=== PATIENT | female | born 1965 | race Caucasian/White ===

== ENCOUNTER 2019-10-19 06:52 | Day surgery (SDC) | payer BC, SELFPAY ==
[2019-10-19] VITALS (8 sets, daily range): BP systolic 98–134; BP diastolic 60–90; PULSE 59–78; RESP 12–18; TEMP 36–36.7; O2SAT 97–100; BMI 25.9
[2019-10-19] MEDS: SODIUM CHLORIDE 0.9% 1,000 ML 200 ML IV (07:40)
--- NOTE | 2019-10-19 08:10 | P.HP_ITS ---
History of Present Illness History of Present Illness Date Patient Seen: 10/19/19 Time Patient Seen: 08:11 Chief complaint: [id number] SCREENING COLONOSCOPY Narrative: Patient presents for colorectal screening. Previous colonoscopy 5 years ago demonstrated adenomatous polyp which was removed. No personal or family history of colon cancer. On further history denies any recent gastrointestinal symptoms. No nausea, vomiting, abdominal pain, loss of appetite, unexplained weight loss, change in bowel habits, diarrhea, constipation, melena, hematochezia, or bright red blood per rectum. Patient History Family & Social History Social History: household members spouse Tobacco & Substance use: Smoking Status Never smoker alcohol intake current alcohol intake frequency holiday/special occasion Substance Use Type does not use Meds Home Medications and Allergies Home Medications Medication Instructions Recorded Confirmed Type Multi For Her 1 tab-cap PO DAILY 10/19/19 10/19/19 History Allergies Allergy/AdvReac Type Severity Reaction Status Date / Time codeine Allergy Severe Vomiting Verified 10/19/19 07:32 Review of Systems Review of Systems Narrative: A 10 point review of systems is negative except as noted in the HPI Exam Vital Signs (past 8 hours): - 10/19/19 07:33 Temperature 98.1 F Pulse Rate 78 Respiratory Rate 18 Blood Pressure 134/90 Pulse Oximetry 99 Oxygen Delivery Method Room Air Narrative Exam Narrative: General-no acute distress, well nourished HEENT-moist mucous membranes, no scleral icterus Neck-supple, no lymphadenopathy Chest- non labored respirations, clear to auscultation bilaterally Cardiac-regular rate no peripheral edema Abdomen-soft, nontender, non distended Extremities-warm, well perfused Neurological-alert and oriented, no focal deficits Assessment & Plan Assessment and plan (1) Screening for colon cancer: Current visit: Yes Status: Acute Assessment & Plan narrative: The patient requires colorectal screening and colonoscopy is recommended. Technical details were discussed. Risks, benefits, alternatives explained. Risks including but not limited to myocardial infarction, aspiration, bleeding, pain, missed lesion, incomplete examination, need for further radiographic studies, colonic perforation, and need for major abdominal surgery were discussed. All questions were answered to their satis faction, and they are in agreement with this plan.
[2019-10-19] MEDS: MIDAZOLAM 5 MG/5 ML VIAL IV (08:13)
[2019-10-19] MEDS: fentaNYL 250 MCG/5 ML INJ IV (08:13)
--- NOTE | 2019-10-19 08:35 | PM.OP.ENDO ---
Operative Date/Time/Diagnoses Date of procedure: 10/19/19 Time of procedure: 08:35 Pre-op diagnosis: Screening colonoscopy History of adenomatous polyp Post-op diagnosis: same Procedure & Clinicians Study performed: Colonoscopy Same procedure as scheduled: Yes Indications: 54-year-old female the last colonoscopy 5 years ago demonstrates adenomatous polyp Surgeon: Terence Ibrahim Procedure Notes SCOAP/Timeout: Performed Procedure in detail: Patient placed in left lateral decubitus position. Time out was performed. Procedural sedation was administered with Versed and Fentanyl. A rectal exam demonstrated no external hemorrhoids no internal masses. Colonoscopy scope was placed into the rectum and advanced through the colon to the cecum. The ileocecal valve was identified. The scope was then slowly withdrawn examining colon thoroughly in all directions. The colonoscopy was notable for the following 1. No masses polyps 2. Sigmoid diverticulosis 3. Quality of prep excellent Scope withdrawal time: 6 Sedation minutes: 16 Findings: diverticulosis Specimen(s): none sent Complications: none Impression: Diverticulosis Post-procedure Recommendations: Colonscopy in 10 years Disposition: same day surgery
== END 2019-10-19 09:40 | disposition home or self-care (01) ==
PROVIDERS: PCP Family Medicine Geriatric Medicine; Referring Provider Surgery; Visit Provider Surgery
PROC: 0DJD8ZZ Inspection of Lower Intestinal Tract, Via Natural or Artificial Opening Endoscopic (ICD-10-PCS; CPT 45378; principal; 2019-10-19 08:30)
DX: Z12.11 Encounter for screening for malignant neoplasm of colon (principal); Z86.010 Personal history of colon polyps; K57.30 Diverticulosis of large intestine without perforation or abscess without bleeding
CPT/HCPCS: 45378; 99152; J2250; J3010

== ENCOUNTER → 2021-11-10 11:11 | Outpatient (CLI) | payer OTHER, SELFPAY ==
--- NOTE | 2021-11-10 | DI.MRI.S_ITS ---
PROCEDURE: MR KNEE LT WO CON INDICATIONS: Pain in left knee TECHNIQUE: Noncontrast sagittal PD fast spin echo and T2 fast spin echo with fat saturation, sagittal 3-D FLASH with fat saturation; coronal T1 spin echo and PD fast spin echo with fat saturation, and axial PD fast spin echo with fat saturation through the knee. COMPARISON: None. FINDINGS: Image quality: Excellent. Menisci: The medial and lateral menisci demonstrate normal morphology and internal signal. The meniscal root ligaments appear intact. Cruciate ligaments: The anterior and posterior cruciate ligaments appear intact. Medial structures: The medial collateral ligament appears intact. Visualized portions of the pes anserinus tendons appear normal. No abnormal bursal fluid. Lateral structures: The lateral collateral ligament, long and short heads of the biceps femoris tendon appear intact. The popliteus tendon appears normal. Iliotibial band appears normal. Anterior structures: The quadriceps and patellar tendons appear intact. Patellar alignment is normal. No femoral trochlear dysplasia or ventral trochlear prominence. No edema in the infrapatellar fat pad. Bones and cartilage: No evidence of fracture. Small focus of T2 hyperintense/T1 hypointense signal is seen in the inferior lateral aspect of the patella, compatible with contusion. The tricompartment hyaline cartilage is maintained. Joint space: Small knee joint fluid. Trace fluid in the popliteal fossa. A 1.1 x 0.7 mm T2 hyperintense lesion is seen adjacent to the popliteal artery. IMPRESSION: 1. No evidence of internal derangement. 2. Small focus of edema involving the inferior, lateral aspect of the patella. 3. Small joint effusion. 4. Cystic-appearing area adjacent to the popliteal artery as detailed above, which is nonspecific but can be seen in the setting of cystic adventitial change. Dictated by: Olivier La M.D. on 11/10/2021 at 13:23 Approved by: Olivier La M.D. on 11/10/2021 at 13:29
== END ==
PROVIDERS: Referring Provider Student in an Organized Health Care Education/Training Program; Visit Provider Student in an Organized Health Care Education/Training Program
DX: M25.562 Pain in left knee (principal); M25.462 Effusion, left knee; G89.29 Other chronic pain
CPT/HCPCS: 73721

== ENCOUNTER 2022-10-23 08:18 | Day surgery (SDC) | payer OTHER, SELFPAY ==
--- NOTE | 2022-10-23 | PATH_ITS ---
[facility] Accession Number: [id number] No. of containers..02 Tissue . 01 Material submitted: . PART A: rectum - RECTUM POLYP PART B: colon - TRANSVERSE COLON POLYP . 01 Diagnosis: A. Rectal Polyp: Hyperplastic polyp. Additional step sections examined. . B. Transverse Colon Polyp: Colonic mucosa with prominent benign lymphoid aggregate. Negative for serrated lesion, dysplasia or malignancy. Additional step sections examined. MRV 10/30/2022 1502 Local . 01 Electronically signed: . Kaleb Lewis MD, PhD, Pathologist NPI- [id number] . 01 Gross description: . Part A: RECTUM POLYP: Received in formalin is 1 fragment(s) of villasenor, soft tissue measuring 0.5 x 0.2 x 0.2 cm submitted entirely in 1 cassette(s) Part B: TRANSVERSE COLON POLYP: Received in formalin is 1 fragment(s) of villasenor, soft tissue measuring 0.1 x 0.1 x 0.1 cm submitted entirely in 1 cassette(s) /RAJEEV 10/23/2022 2230 Local . 01 Pathologist provided ICD-10: K62.1, K63.5 . 01 CPT . 932613, [id number] Performed at: 01 [facility] [address] [place] [address] [address] [facility], [place], [place] [id number] MD Nicolas York MD Phone: [phone]
[2022-10-23] MEDS: LACTATED RINGERS 1,000 ML 200 ML IV (08:36)
[2022-10-23 08:43] VITALS: BP 122/78; PULSE 67; RESP 18; TEMP 36.4; O2SAT 98; BMI 26.6
--- NOTE | 2022-10-23 09:32 | P.HP_ITS ---
History of Present Illness History of Present Illness Date Patient Seen: 10/23/22 Time Patient Seen: 09:32 Chief complaint: DX COLONOSCOPY Narrative: The patient presents for colorectal screening. She had a normal colonoscopy 2 years ago. 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 Her urogynaecologist Onc requested that she have a repeat colonoscopy to evaluate for any synchronous neoplasms.. No blood per rectum abdominal pain unintentional weight loss. Patient History Medical History (Updated 10/23/22 @ 09:35 by Terence Ibrahim MD) Paget's disease of vulva Family & Social History Social History: household members spouse Tobacco & Substance use: Smoking Status Never smoker alcohol intake current alcohol intake frequency holiday/special occasion Substance Use Type does not use Meds Home Medications and Allergies Home Medications Medication Instructions Recorded Confirmed Type [id number] fumarate 18 1 tab-cap PO DAILY 10/19/19 10/23/22 History mg-FA 600 mcg-vit K 40 mcg capsule (Multi For Her) sodium,potassium,mag sulfates 17.5 See Rx Instructions PO .COMPLEX 09/18/22 Rx gram-3.13 gram-1.6 gram oral soln #354 mL (Suprep Bowel Prep Kit) cetirizine 10 mg capsule (Zyrtec) 10 mg PO DAILY 10/23/22 10/23/22 History Allergies Allergy/AdvReac Type Severity Reaction Status Date / Time codeine Allergy Severe Vomiting Verified 10/23/22 08:53 Exam Vital Signs (past 8 hours): - 10/23/22 08:43 Temperature 97.6 F Pulse Rate 67 Respiratory Rate 18 Blood Pressure 122/78 Pulse Oximetry 98 Oxygen Delivery Method Room Air Oxygen Delivery Method Room Air Narrative Exam Narrative: General adult woman alert oriented no acute distress Assessment & Plan Assessment and plan (1) Paget's disease of vulva: Status: Acute (2) Screening for colon cancer: Status: Acute Assessment & Plan narrative: 57-year-old woman with recent diagnosis of Paget's disease of vulva status post resection who is here for diagnostic colonoscopy. A significant percentage of patients with Paget's disease of the vulva can develop synchronous neoplasms in particular the rectum, and therefore colonoscopy is indicated. Risks, benefits, alternatives explained. Risks including but not limited to myocardial infarction, aspiration, bleeding, pain, missed lesion, incomplete examination, need for further radiographic studies, colonic perforation, and need for major abdominal surgery were discussed. All questions were answered to their satisfaction, and they are in agreement with this plan. Time Spent With Patient Critical Care time: I spent a total of [] minutes of critical care time on this patient's care today; this time is exclusive of procedural time.
--- NOTE | 2022-10-23 09:42 | P.OP.COLON_ITS ---
Operative Date/Time/Diagnoses Date of procedure: 10/23/22 Time of procedure: 09:42 Pre-op diagnosis: Colorectal screening Paget's disease of the vulva Post-op diagnosis: other (Colonic polyps x2) Procedure & Clinicians Study performed: Colonoscopy Same procedure as scheduled: Yes Indications: New diagnosis of Paget's disease of the vulva Surgeon: Terence Ibrahim Procedure Notes Procedure in detail: The history and physical was performed/updated and the patient is ASA class is 2. The procedure was discussed in detail with the patient. Potential risks complications including infection, bleeding, missed diagnosis, perforation, need for surgery, and were explained. Their questions were answered and informed consent was obtained. Patient was brought to the procedure room and placed standard monitoring equipment. The patient's vital signs were monitored continuously throughout the entire procedure. Prior to starting time-out was performed. The patient was placed in the left lateral recumbent position. Procedural sedation was administered by anesthesia. Examination began with a thorough inspection of the perianal area there was no evidence of fissures, fistulae, external hemorrhoids or cutaneous malignancy. The colonoscopy scope was then placed into the anal canal and was advanced to the cecum, which was identified by the ileocecal valve, the appendiceal orifice and the confluence of the taenia. The scope was t hen slowly withdrawn examining colon thoroughly in all directions, irrigating it of any residual stool. Within the transverse colon 50 cm from the anal verge was a flat 3 mm polyp which was removed with biopsy forceps. Within the proximal rectum at 10 cm from the anal verge there was a 3 mm polyp removed with biopsy forceps. Grade 1 internal hemorrhoids within the rectum on retroflexion The patient tolerated the procedure well. They will be discharged once criteria are met. The prep was of good/excellent quality. The withdrawl time was 8 minutes. Specimen(s): other (Rectum and transverse colonic polyps) Complications: none Impression: Colonic polyps x2 Post-procedure Recommendations: High fiber diet Plan for aftercare: Follow-up is dependent on pathology findings Disposition: same day surgery
[2022-10-23 10:02] VITALS: BP 114/74; PULSE 80; RESP 17; TEMP 36.8; O2SAT 97
[2022-10-23 10:08] VITALS: BP 134/82; PULSE 74; RESP 18; O2SAT 97
== END 2022-10-23 10:17 | disposition home or self-care (01) ==
PROVIDERS: PCP Student in an Organized Health Care Education/Training Program; Referring Provider Surgery; Visit Provider Surgery
PROC: 0DJD8ZZ Inspection of Lower Intestinal Tract, Via Natural or Artificial Opening Endoscopic (ICD-10-PCS; CPT 45378; principal; 2022-10-23 09:15)
DX: Z12.11 Encounter for screening for malignant neoplasm of colon (principal); C51.9 Malignant neoplasm of vulva, unspecified; K64.0 First degree hemorrhoids; K62.1 Rectal polyp
CPT/HCPCS: 45380; J2704